=== PATIENT | female | born 1950 | race Caucasian/White ===

== ENCOUNTER 2024-03-31 11:48 | Emergency (ER) | payer BC, OTHER ==
[~2024-03-31] VITALS: Ht 160 cm; Wt 54.9 kg
[2024-03-31 15:00] VITALS: BP 172/70; PULSE 129; RESP 18; TEMP 98.4; O2SAT 97
[2024-03-31] MEDS ORDERED: ACET-1080 PO (15:02)
[2024-03-31] MEDS ORDERED: METH-1181 PO (15:02)
[2024-03-31] MEDS: cloNIDine HCL 0.1 MG TAB PO ONE (15:08)
== END 2024-03-31 15:13 | disposition home or self-care (01) ==
LOC: ER 11:58
DX: M50.322 Other cervical disc degeneration at C5-C6 level (principal); M51.36 Other intervertebral disc degeneration, lumbar region; I10 Essential (primary) hypertension; E78.5 Hyperlipidemia, unspecified; F41.9 Anxiety disorder, unspecified; F32.9 Major depressive disorder, single episode, unspecified; Z79.899 Other long term (current) drug therapy
CPT/HCPCS: 72040; 72100

== ENCOUNTER 2024-04-06 12:12 | Emergency (ER) | payer BC ==
[~2024-04-06] VITALS: Ht 160 cm; Wt 54.9 kg
[~2024-04-06 12:12] MED LIST: ACET-1080 PO; METH-1181 PO
[2024-04-06] MEDS: cloNIDine HCL 0.1 MG TAB PO ONE (12:31)
[2024-04-06 12:33] VITALS: BP 209/98; PULSE 71; RESP 18; O2SAT 97
== END 2024-04-06 15:00 | disposition left against medical advice (07) ==
LOC: ER 12:12
DX: I10 Essential (primary) hypertension (principal); Z53.21 Procedure and treatment not carried out due to patient leaving prior to being seen by health care provider